=== PATIENT | female | born 1930 | race American Indian/Alaskan Native ===

== ENCOUNTER 2018-10-29 18:32 | Emergency (ER) | payer MEDICARE ==
--- NOTE | 2018-10-29 19:45 | EDM.PDOC ---
ED HPI GENERAL MEDICAL PROBLEM - General Chief Complaint: General Stated Complaint: UNKNOWN-AMBULANCE Time Seen by Provider: 10/29/18 18:50 Source of Information: Reports: Patient, Family History Limitations: Reports: No Limitations - History of Present Illness INITIAL COMMENTS - FREE TEXT/NARRATIVE: This 87 yo female patient was brought to the ED by family due to a fall in the bathroom. Apparently, the patient was at home when she lost her balance and fell into the tub. The patient reports she hit her upper back. The patient does not know if she had any loss of consciousness. The patient has dementia. Onset: Today Duration: Minutes:, Constant Location: Reports: Other Quality: Reports: Other Severity: Moderate Improves with: Reports: None Worsens with: Reports: None Context: Reports: Other Associated Symptoms: Reports: No Other Symptoms - Related Data Allergies Allergy/AdvReac Type Severity Reaction Status Date / Time No Known Allergies Allergy Verified 10/29/18 18:41 Home Meds: Home Meds Acetaminophen [Tylenol] 650 mg PO TID 10/29/18 [History] Cyanocobalamin (Vitamin B12) [Cyanocobalamin] 1,000 mcg .XX 10/29/18 [History] LORazepam 0.5 mg PO BID 10/29/18 [History] Multivitamin with Minerals [Multivitamins with Minerals] 1 each PO DAILY [History] Polyethylene Glycol 3350 [MiraLAX] 17 gm PO DAILY 10/29/18 [History] QUEtiapine [SEROquel] 25 mg PO BID 10/29/18 [History] Ranitidine [Zantac] 150 mg PO BID 10/29/18 [History] Sennosides/Docusate Sodium [Senna-S] 1 each PO BID 10/29/18 [History] Zolpidem [Ambien] 5 mg PO BEDTIME PRN 10/29/18 [History] 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 History: Reports: Head 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 Psychiatric History: Reports: Dementia - Past Surgical History Other HEENT Surgeries/Procedures: previous injury GI Surgical History: Reports: Appendectomy, Cholecystectomy Other Musculoskeletal Surgeries/Procedures:: Right hip partial replacement Social & Family History - Family History Family Medical History: Noncontributory - Tobacco Use Smoking Status *Q: Never Smoker Second Hand Smoke Exposure: No - Caffeine Use Caffeine Use: Reports: Coffee - Recreational Drug Use Recreational Drug Use: No ED ROS GENERAL - Review of Systems Review Of Systems: ROS reveals no pertinent complaints other than HPI. ED EXAM, GENERAL - Physical Exam Exam: See Below Exam Limited By: No Limitations General Appearance: Alert, WD/WN, Mild Distress Eye Exam: Bilateral Eye: EOMI, Normal Inspection, PERRL Ears: Normal External Exam, Normal Canal, Hearing Grossly Normal, Normal TMs Nose: Normal Inspection, Normal Mucosa, No Blood Throat/Mouth: Normal Inspection, Normal Lips, Normal Teeth, Normal Gums, Normal Oropharynx, Normal Voice, No Airway Compromise Head: Atraumatic, Normocephalic Neck: Normal Inspection, Supple, Non-Tender, Full Range of Motion Respiratory/Chest: No Respiratory Distress, Lungs Clear, Normal Breath Sounds, No Accessory Muscle Use, Chest Non-Tender Cardiovascular: Normal Peripheral Pulses, Regular Rate, Rhythm, No Edema, No Gallop, No JVD, No Murmur, No Rub GI/Abdominal: Normal Bowel Sounds, Soft, Non-Tender, No Organomegaly, No Distention, No Abnormal Bruit, No Mass (Female) Exam: Deferred Rectal (Female) Exam: Deferred Back Exam: Normal Inspection, Full Range of Motion, NT Extremities: Normal Inspection, Normal Range of Motion, Non-Tender, Normal Capillary Refill, No Pedal Edema Neurological: Alert, Oriented, CN II-XII Intact, Normal Cognition, Normal Gait, Normal Reflexes, No Motor/Sensory Deficits Psychiatric: Normal Affect, Normal Mood Skin Exam: Warm, Dry, Intact, Normal Color, No Rash Lymphatic: No Adenopathy Course - Vital Signs Last Recorded V/S: Last Vital Signs Temp 36.4 C 10/29/18 18:45 Pulse 97 10/29/18 18:45 Resp 17 10/29/18 18:45 BP 142/102 H 10/29/18 18:45 Pulse Ox 97 10/29/18 18:45 - Orders/Labs/Meds Orders: Active Orders 24 hr Category Date Time Status Cervical Spine wo Cont [CT] Urgent Exams 10/29/18 19:03 Taken Head wo Cont [CT] Stat Exams 10/29/18 18:54 Taken Thoracic Spine 3V [CR] Urgent Exams 10/29/18 18:54 Stop Req Thoracic Spine wo Cont [CT] Urgent Exams 10/29/18 19:07 Taken CULTURE URINE [RM] Routine Lab 10/29/18 19:43 Received Labs: Laboratory Tests 10/29/18 Range/Units 19:43 Urine Color Yellow (YELLOW) Urine Appearance Slightly cloudy (CLEAR) Urine pH 6.5 (5.0-9.0) Ur Specific [place] 1.015 (1.005-1.030) Urine Protein Negative (NEGATIVE) Urine Glucose (UA) Negative (NEGATIVE) Urine Ketones Negative (NEGATIVE) Urine Occult Blood Negative (NEGATIVE) Urine Nitrite Negative (NEGATIVE) Urine Bilirubin Negative (NEGATIVE) Urine Urobilinogen 0.2 (0.2-1.0) mg/dL Ur Leukocyte Esterase Moderate H (NEGATIVE) Urine RBC 0-5 /HPF Urine WBC 5-10 H (0-5/HPF) /HPF Ur Epithelial Cells Many H /HPF Urine Bacteria Many H (0-FEW/HPF) /HPF Urinalysis Comment Departure - Departure Time of Disposition: 20:24 Disposition: Home, Self-Care 01 Condition: Fair Clinical Impression: Fall from ground level, Upper back pain - Discharge Information *PRESCRIPTION DRUG MONITORING PROGRAM REVIEWED*: Not Applicable *COPY OF PRESCRIPTION DRUG MONITORING REPORT IN PATIENT FARIHA: Not Applicable Instructions: Back Pain, Adult Forms: ED Department Discharge Care Plan Goals: The patient and family were advised of the examination and CT results during the visit. The patient was encouraged to slow down and rest over the next 48 hours. If the patient has any additional symptoms or further concerns, the patient should either return to the emergency department or visit her primary care facility. - My Orders Last 24 Hours: My Active Orders 10/29/18 19:43 CULTURE URINE [RM] Routine - Assessment/Plan Last 24 Hours: My Active Orders 10/29/18 19:43 CULTURE URINE [RM] Routine
== END 2018-10-29 20:39 | disposition home or self-care (01) ==
LOC: DL.ED 18:32
DX: M54.6 Pain in thoracic spine (principal); Z79.899 Other long term (current) drug therapy; W19.XXXA Unspecified fall, initial encounter
CPT/HCPCS: 70450; 72125; 72128; 81001; 87086; 87088; 87186; 99285-25

== ENCOUNTER 2018-11-01 09:43 | Emergency (ER) | payer MEDICARE, MEDICAID ==
[2018-11-01] MEDS ORDERED: Lidocaine 1% 30 ML SDV INJECT ONE (10:10)
--- NOTE | 2018-11-01 10:10 | EDM.PDOC ---
ED HPI GENERAL MEDICAL PROBLEM - General Stated Complaint: TRAUMA CODE-AMBULANCE Time Seen by Provider: 11/01/18 10:05 Source of Information: Reports: Patient, Family History Limitations: Reports: No Limitations - History of Present Illness INITIAL COMMENTS - FREE TEXT/NARRATIVE: daughter states pt was trying to move onto her bed and lost balance and fell hitting right side of hter head onto bottom wood edge and cut it. denies LOC, no N/V, family states pt has dementia and behaviour same without change. pt states her head hurts and denies pain elsewhere. arrived no C-collar denying neck pain. TRAUMA NOTES ARRIVAL TIME: 10:00 GSC ON ARRIVAL: 15 family states pt has dementia and there is no change in behaviour C-COLLAR PRESENT: no pt denies neck pain GCS @ 1 HOUR: 15 no change OFF SPINE BOARD: no board PRIMARY SURVEY @: 10:00 SECONDARY SURVEY @: 11:00 GSC ON DISCHARGE: 15 no change from arrival. - Related Data Allergies Allergy/AdvReac Type Severity Reaction Status Date / Time No Known Allergies Allergy Verified 10/29/18 18:41 Home Meds: Home Meds Acetaminophen [Tylenol] 650 mg PO TID 10/29/18 [History] Cyanocobalamin (Vitamin B12) [Cyanocobalamin] 1,000 mcg .XX 10/29/18 [History] LORazepam 0.5 mg PO BID 10/29/18 [History] Multivitamin with Minerals [Multivitamins with Minerals] 1 each PO DAILY [History] Polyethylene Glycol 3350 [MiraLAX] 17 gm PO DAILY 10/29/18 [History] QUEtiapine [SEROquel] 25 mg PO BID 10/29/18 [History] Ranitidine [Zantac] 150 mg PO BID 10/29/18 [History] Sennosides/Docusate Sodium [Senna-S] 1 each PO BID 10/29/18 [History] Zolpidem [Ambien] 5 mg PO BEDTIME PRN 10/29/18 [History] 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 ED EXAM, HEAD INJURY - Physical Exam Exam: See Below Exam Limited By: No Limitations General Appearance: Alert, WD/WN, No Apparent Distress, Other (dementia.) Head: Scalp Lacerations, Other (2" lac right parietal). No: Macias's Sign, Raccoon Eyes Nexus Criteria: No: Posterior, Midline Cervical Tenderness, Evidence of Intoxication, Altered Level of Consciousness, Focal Neurological Deficit, Painful Distraction Injuries Eyes: Bilateral Eye: PERRL (pupils ess ER @ 4mm) Ears: Hearing Grossly Normal Nose: Normal Inspection Throat/Mouth: Normal Voice, No Airway Compromise Neck: Non-Tender, Full Range of Motion, Normal Alignment, Normal Inspection Respiratory: No Respiratory Distress Cardiovascular: Regular Rate, Rhythm GI/Abdominal Exam: Soft, Non-Tender Back Exam: Normal Inspection, Full Range of Motion Extremities: Normal Inspection, Normal Range of Motion Neurologic: No Motor/Sensory Deficits, Alert, Normal Mood/Affect, Other ( dementia per family) - Aimee Coma Score Best Eye Response (Vaughan): (4) Open Spontaneously Best Verbal Response (Aimee): (5) Oriented Best Motor Response (Aimee): (6) Obeys Commands Aimee Total: 15 ED LACERATION/WOUND & MARIA ISABEL PROC - Laceration/Wound Repair Right Head Lac/wound length in cm: 4 (right posterior parietal) Appearance: Subcutaneous, Linear, Clean Distal NVT: Neuro & Vascular Intact, No Tendon Injury Anesthetic Type: Local Local Anesthesia - Lidocaine (Xylocaine): 1% Plain Local Anesthetic Volume: 5cc Skin Prep: Chlorhexidine (Hibiciens) Saline irrigation (cc's): 20 Exploration/Debridement/Repair: Wound Explored, In a Bloodless Field, Explored to Base, No Foreign Material Found Closed with: Sutures Suture Size: 3-0 Suture Type: Nylon, Interrupted Sterile Dressing Applied: None Tetanus Status Addressed: Yes Complications: No Course - Orders/Labs/Meds Labs: Laboratory Tests 11/01/18 11/01/18 Range/Units 09:51 09:51 WBC 5.6 (5.0-10.0) 10^3/uL RBC 4.12 L (4.2-5.4) 10^6/uL Hgb 13.4 (12.0-16.0) g/dL Hct 41.4 (37.0-47.0) % MCV 100.5 H (80-100) fL MCH 32.5 (27.0-34.0) pg MCHC 32.4 L (33.0-35.0) g/dL Plt Count 181 (150-450) 10^3/uL Neut % (Auto) 55.2 (42.2-75.2) % Lymph % (Auto) 31.5 (20.5-50.1) % [place] % (Auto) 9.5 H (2-8) % Eos % (Auto) 3.4 H (1.0-3.0) % Baso % (Auto) 0.4 (0.0-1.0) % Sodium 139 (135-145) mmol/L Potassium 4.3 (3.6-5.0) mmol/L Chloride 110 (101-111) mmol/L Carbon Dioxide 19.0 L (21.0-31.0) mmol/L Anion Gap 14.3 BUN 27 H (7-18) mg/dL Creatinine 1.4 H (0.6-1.3) mg/dL Est Cr Clr Drug Dosing TNP Estimated GFR (MDRD) 36 BUN/Creatinine Ratio 19.28 Glucose 109 H (74-105) mg/dL Calcium 9.1 (8.4-10.2) mg/dl Total Bilirubin 0.9 (0.2-1.0) mg/dL AST 26 (10-42) IU/L ALT 18 (10-60) IU/L Alkaline Phosphatase 76 (42-121) IU/L Total Protein 6.8 (6.7-8.2) g/dl Albumin 3.4 (3.2-5.5) g/dl Globulin 3.4 Albumin/Globulin Ratio 1.00 Meds: Medications Discontinued Medications Generic Name Dose Route Start Last Admin Trade Name Pedro PRN Reason Stop Dose Admin Lidocaine HCl 30 ml 11/01/18 10:10 11/01/18 10:20 Xylocaine-Mpf 1% INJECT 11/01/18 10:11 30 ml ONETIME ONE Administration - Re-Assessments/Exams Free Text/Narrative Re-Assessment/Exam: 11/01/18 11:14 results discussed with daughter and pt. pt still has no c/o, smiles in no distress. Departure - Departure Time of Disposition: 11:25 Disposition: Home, Self-Care 01 Condition: Good Clinical Impression: Laceration of scalp without foreign body Qualifiers: Encounter type: initial encounter Qualified Code(s): S01.01XA - Laceration without foreign body of scalp, initial encounter Head injury due to trauma Qualifiers: Encounter type: initial encounter Qualified Code(s): S09.90XA - Unspecified injury of head, initial encounter - Discharge Information Instructions: Laceration Care, Adult, [id number] Referrals: PCP,None [Primary Care Provider] - Forms: ED Department Discharge Additional Instructions: 1) suture removal 10 days 2) recheck if there is any change 3) follow up at clinic
[2018-11-01 10:59] LABS: ANION GAP 14.3; CHLORIDE,CL 110 mmol/L (101-111); SODIUM,NA 139 mmol/L (135-145)
== END 2018-11-01 11:27 | disposition home or self-care (01) ==
LOC: DL.ED 09:43
DX: S01.01XA Laceration without foreign body of scalp, initial encounter (principal); Z79.899 Other long term (current) drug therapy; W19.XXXA Unspecified fall, initial encounter; W22.8XXA Striking against or struck by other objects, initial encounter
CPT/HCPCS: 12002; 36415; 70450; 72125; 80053; 85025; 99285-25; J2001

== ENCOUNTER 2018-11-03 20:37 | Emergency (ER) | payer MEDICARE, MEDICAID ==
--- NOTE | 2018-11-03 21:26 | EDM.PDOC ---
ED HPI GENERAL MEDICAL PROBLEM - General Chief Complaint: Lower Extremity Injury/Pain Stated Complaint: HIPS TO BE CHECKED [id number] Time Seen by Provider: 11/03/18 21:20 Source of Information: Reports: Patient History Limitations: Reports: No Limitations - History of Present Illness INITIAL COMMENTS - FREE TEXT/NARRATIVE: This 87 yo female patient reports to the ED with her daughter due to right hip and upper leg pain. The patient reports she started to have increased pain today and has not been able to ambulate without assistance. The patient was seen in her 2 times in the past week for falls (one in the bathroom and one in her bedroom). The patient had admitted to previous falls due to loosing her balance. Onset: Today Duration: Constant Location: Reports: Pelvis, Lower Extremity, Left, Lower Extremity, Right Quality: Reports: Ache, Dull Severity: Moderate Improves with: Reports: Rest Worsens with: Reports: Movement Context: Reports: Trauma (ground level falls) Associated Symptoms: Reports: Other Right Hip Pain Score (Numeric/FACES): 7 - Related Data Allergies Allergy/AdvReac Type Severity Reaction Status Date / Time No Known Allergies Allergy Verified 10/29/18 18:41 Home Meds: Home Meds Acetaminophen [Tylenol] 650 mg PO TID 10/29/18 [History] Cyanocobalamin (Vitamin B12) [Cyanocobalamin] 1,000 mcg .XX 10/29/18 [History] LORazepam 0.5 mg PO BID 10/29/18 [History] Multivitamin with Minerals [Multivitamins with Minerals] 1 each PO DAILY [History] Polyethylene Glycol 3350 [MiraLAX] 17 gm PO DAILY 10/29/18 [History] QUEtiapine [SEROquel] 25 mg PO BID 10/29/18 [History] Ranitidine [Zantac] 150 mg PO BID 10/29/18 [History] Sennosides/Docusate Sodium [Senna-S] 1 each PO BID 10/29/18 [History] Zolpidem [Ambien] 5 mg PO BEDTIME PRN 10/29/18 [History] 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 History: Reports: Head Trauma Psychiatric History: Reports: Dementia - Past Surgical History Other HEENT Surgeries/Procedures: previous injury GI Surgical History: Reports: Appendectomy, Cholecystectomy Other Musculoskeletal Surgeries/Procedures:: Right hip partial replacement Social & Family History - Family History Family Medical History: Noncontributory - Tobacco Use Smoking Status *Q: Never Smoker Second Hand Smoke Exposure: No - Caffeine Use Caffeine Use: Reports: Coffee - Recreational Drug Use Recreational Drug Use: No Review of Systems - Review of Systems Review Of Systems: ROS reveals no pertinent complaints other than HPI. ED EXAM, GENERAL - Physical Exam Exam: See Below Exam Limited By: No Limitations General Appearance: Alert, WD/WN, Moderate Distress, Obese Eye Exam: Bilateral Eye: EOMI, Normal Inspection, PERRL Ears: Normal External Exam, Normal Canal, Hearing Grossly Normal, Normal TMs Nose: Normal Inspection, Normal Mucosa, No Blood Throat/Mouth: Normal Inspection, Normal Lips, Normal Teeth, Normal Gums, Normal Oropharynx, Normal Voice, No Airway Compromise Head: Atraumatic, Normocephalic Neck: Normal Inspection, Supple, Non-Tender, Full Range of Motion Respiratory/Chest: No Respiratory Distress, Lungs Clear, Normal Breath Sounds, No Accessory Muscle Use, Chest Non-Tender Cardiovascular: Normal Peripheral Pulses, Regular Rate, Rhythm, No Edema, No Gallop, No JVD, No Murmur, No Rub GI/Abdominal: Normal Bowel Sounds, Soft, Non-Tender, No Organomegaly, No Distention, No Abnormal Bruit, No Mass (Female) Exam: Deferred Rectal (Female) Exam: Deferred Back Exam: Normal Inspection, Full Range of Motion, NT Extremities: Leg Pain (bilateral upper leg pain and right hip pain) Neurological: Alert, Oriented, CN II-XII Intact Psychiatric: Normal Affect, Normal Mood Skin Exam: Warm, Dry, Intact, Normal Color, No Rash Lymphatic: No Adenopathy Course - Vital Signs Last Recorded V/S: Last Vital Signs Temp 37.3 C 11/03/18 21:12 Pulse 90 11/03/18 21:12 Resp 18 11/03/18 21:12 BP 158/84 H 11/03/18 21:12 Pulse Ox 95 11/03/18 21:12 - Orders/Labs/Meds Orders: Active Orders 24 hr Category Date Time Status Femur Min 2V Lt [CR] Stat Exams 11/03/18 21:19 Ordered Femur Min 2V Rt [CR] Stat Exams 11/03/18 21:19 Ordered Hip Min 2V w Pelvis Bi [CR] Stat Exams 11/03/18 21:19 Ordered Lumbar Spine 2 or 3V [CR] Urgent Exams 11/03/18 21:21 Ordered Ketorolac [Toradol] Med 11/03/18 22:41 Once 30 mg IM ONETIME ONE Departure - Departure Time of Disposition: 22:42 Disposition: Home, Self-Care 01 Condition: Fair Clinical Impression: Strain of right hip Qualifiers: Encounter type: initial encounter Qualified Code(s): S76.011A - Strain of muscle, fascia and tendon of right hip, initial encounter Chronic low back pain Qualifiers: Back pain laterality: bilateral Sciatica presence: with sciatica Sciatica laterality: sciatica of right side Qualified Code(s): M54.41 - Lumbago with sciatica, right side; G89.29 - Other chronic pain - Discharge Information *PRESCRIPTION DRUG MONITORING PROGRAM REVIEWED*: Not Applicable *COPY OF PRESCRIPTION DRUG MONITORING REPORT IN PATIENT FARIHA: Not Applicable Instructions: Muscle Strain, [id number], Back Pain, Adult, [id number] Forms: ED Department Discharge Care Plan Goals: The patient and family were advised of the examination and x-ray results during the visit. The patient was given an injection of Toradol while in the ED for pain and to reduce inflammation. The patient may continue to take Tylenol or ibuprofen for continued temporary symptom relief. The patient should follow-up with her primary care facility for continued evaluation and further treatment ( physical therapy). If the patient has any additional symptoms or concerns, the patient should either return to the emergency department or visit her primary care facility. - My Orders Last 24 Hours: My Active Orders 11/03/18 21:19 Femur Min 2V Lt [CR] Stat Femur Min 2V Rt [CR] Stat Hip Min 2V w Pelvis Bi [CR] Stat 11/03/18 21:21 Lumbar Spine 2 or 3V [CR] Urgent 11/03/18 22:41 Ketorolac [Toradol] 30 mg IM ONETIME ONE - Assessment/Plan Last 24 Hours: My Active Orders 11/03/18 21:19 Femur Min 2V Lt [CR] Stat Femur Min 2V Rt [CR] Stat Hip Min 2V w Pelvis Bi [CR] Stat 11/03/18 21:21 Lumbar Spine 2 or 3V [CR] Urgent 11/03/18 22:41 Ketorolac [Toradol] 30 mg IM ONETIME ONE
[2018-11-03] MEDS ORDERED: Ketorolac 30 MG/ML SDV IM ONE (22:41)
== END 2018-11-03 22:55 | disposition home or self-care (01) ==
LOC: DL.ED 20:37
DX: S76.011A Strain of muscle, fascia and tendon of right hip, initial encounter (principal); M54.41 Lumbago with sciatica, right side; G89.29 Other chronic pain; F03.90 Unspecified dementia, unspecified severity, without behavioral disturbance, psychotic disturbance, mood disturbance, and anxiety; Z90.49 Acquired absence of other specified parts of digestive tract; Z79.899 Other long term (current) drug therapy; W18.30XA Fall on same level, unspecified, initial encounter
CPT/HCPCS: 72100; 73521; 73552; 96372; 99283; J1885